=== PATIENT | female | born 1970 | race Caucasian/White ===

== ENCOUNTER 2016-04-16 13:09 | Emergency (ER) | payer OTHER ==
[~2016-04-16] VITALS: Ht 167.6 cm; Wt 127.6 kg
[~2016-04-16 13:09] MED LIST: CLARITIN10 MG PO; FEROSUL325 MG PO; NAPROSYN500 MG PO; NASONEX17 GM BOTH NARES; PERCOCET 5/31 TABLET PO; PRILOSEC40 MG PO; PROBIOTIC1 EAC3 PO; PROVENTIL17 GM IH; PULMICORT FLE180 MCG IH; SINGULAIR10 MG PO; VENTOLIN HFA18 GM IH; ZANTAC150 MG PO
[2016-04-16] MEDS ORDERED: DILAUDID2 MG PO (15:38)
[2016-04-16] MEDS ORDERED: REGLAN10 MG PO (15:38)
[2016-04-16] MEDS ORDERED: FIORICET,ESG1 TABLET PO (15:38)
[2016-04-16] MEDS ORDERED: MEDROL DOSEPAK4 MG PO (15:38)
[2016-04-16 15:57] VITALS: BP 140/86
== END 2016-04-16 15:50 | disposition home or self-care (01) ==
LOC: EME 13:09
DX: G43.909 Migraine, unspecified, not intractable, without status migrainosus (principal); Z88.1 Allergy status to other antibiotic agents
CPT/HCPCS: 70450; 99281; 99285; J1100; J1170; J2765

== ENCOUNTER 2016-04-27 10:04 | Emergency (ER) | payer OTHER ==
[~2016-04-27] VITALS: Ht 167.6 cm; Wt 128.2 kg
[~2016-04-27 10:04] MED LIST changes: +DILAUDID2 MG PO; +FIORICET,ESG1 TABLET PO; +MEDROL DOSEPAK4 MG PO; +REGLAN10 MG PO
[2016-04-27 10:37] LABS: HEMATOCRIT 42.5 % (36.0-46.0); MCH 27.8 PG (29.0-34.0); MCHC 33.2 G/DL (30.0-36.0); MCV 83.8 FL (83-99); PLATELET COUNT 238 K/uL (156-360); RBC DIS.WIDTH-SD 42.1 % (39-53); RED BLOOD COUNT 5.07 M/uL (3.80-5.20); WHITE BLOOD COUNT 6.9 K/uL (4.1-10.2)
[2016-04-27 10:49] LABS: CHLORIDE 105 mEq/L (99-109); POTASSIUM 3.9 mEq/L (3.7-5.4); SODIUM 141 mEq/L (136-147)
[2016-04-27 10:51] LABS: GLUCOSE 91 mg/dL (70-99)
[2016-04-27 10:52] LABS: ANION GAP 12 MEQ/L (2-14)
[2016-04-27 10:55] LABS: GFR ESTIMATE (CALCULATED) > 59 mL/min/
[2016-04-27 10:56] LABS: UREA NITROGEN (BUN) 16 mg/dL (9-23)
[2016-04-27 11:01] LABS: TROP-I INTERPRETATION NEGATIVE; TROPONIN-I < 0.01 ng/mL (0.0-0.30)
[2016-04-27 14:15] LABS: TROP-I INTERPRETATION NEGATIVE; TROPONIN-I < 0.01 ng/mL (0.0-0.30)
[2016-04-27] MEDS ORDERED: LISINOPRIL5 MG PO (15:36)
[2016-04-27] MEDS ORDERED: FIORICET,ESG1 TABLET PO (16:29)
[2016-04-27 16:37] VITALS: BP 130/73
== END 2016-04-27 16:44 | disposition home or self-care (01) ==
LOC: EME 10:04
PROVIDERS: Nurse Practitioner Family
DX: I10 Essential (primary) hypertension (principal); G43.909 Migraine, unspecified, not intractable, without status migrainosus; K21.9 Gastro-esophageal reflux disease without esophagitis
CPT/HCPCS: 71020; 80048; 84484; 85027; 93005; 99281; 99284

== ENCOUNTER → 2016-08-18 | Outpatient (CLI) | payer OTHER ==
[~2016-08-18] MED LIST changes: +LISINOPRIL5 MG PO
== END | disposition home or self-care (01) ==
LOC: NUC 08:30
DX: K31.84 Gastroparesis (principal); K21.9 Gastro-esophageal reflux disease without esophagitis; D13.1 Benign neoplasm of stomach; R11.0 Nausea
CPT/HCPCS: 78264; A9541